=== PATIENT | female | born 1955 | race Two or more races ===

== ENCOUNTER 2017-10-13 22:08 | Inpatient (IN) | payer OTHER ==
[~2017-10-13] VITALS: Ht 160 cm; Wt 74.4 kg
[2017-10-13] MEDS ORDERED: SODIUM CHLORIDE 0.9% 1,000 ML IV ONE (22:39)
[2017-10-13] MEDS ORDERED: IBUPROFEN 400MG TABLET PO ONE (22:45)
[2017-10-14 00:12] LABS: BASOPHILS % 0.4 % (0.0-2.0); EOSINOPHILS % 0.1 % (0.0-5.0); HEMATOCRIT. 39.3 % (36.0-48.0); HEMOGLOBIN. 13.2 g/dL (12.0-16.0); LYMPHOCYTES % 11.2 % (20.0-50.0); MEAN CORPUSCULAR HEMOGLOBIN 32.6 pg (28.0-32.0); MEAN CORPUSCULAR VOLUME 96.8 fL (81.0-99.0); MEAN PLATELET VOLUME 8.8 fl (7.4-10.4); MONOCYTES % 6.2 % (2.0-8.0); NEUTROPHILS % 82.1 % (40.0-76.0); PLATELET 261 x1000/uL (130-400); RED BLOOD CELL COUNT 4.06 mill/uL (4.2-5.4); RED CELL DISTRIBUTION WIDTH 12.9 % (11.6-14.6)
[2017-10-14 00:20] LABS: CHLORIDE 101 mEq/L (98-107)
[2017-10-14 00:31] LABS: PARTIAL THROMBOPLASTIN TIME 24.5 sec (23.4-31.0)
[2017-10-14] MEDS ORDERED: ASPIRIN 325MG EC TABLET PO ONE (00:45)
[2017-10-14] MEDS ORDERED: MAGNESIUM/ALUMINUM HYDROXIDE/SIMETHICONE 30ML UDC PO PRN (01:15)
[2017-10-14] MEDS ORDERED: ACETAMINOPHEN 650MG SUPP PR PRN (01:15)
[2017-10-14] MEDS ORDERED: ONDANSETRON 4MG ODT PO PRN (01:15)
[2017-10-14] MEDS ORDERED: GUAIFENESIN 200MG/10ML SUGAR FREE UDC PO PRN (01:15)
[2017-10-14] MEDS ORDERED: DIPHENHYDRAMINE 50MG/ML VIAL IV PRN (01:15)
[2017-10-14] MEDS ORDERED: IPRATROPIUM/ALBUTEROL 0.5-3(2.5)MG/3ML NEB INH PRN (01:15)
[2017-10-14] MEDS ORDERED: HYDROCODONE/ACETAMINOPHEN 5/325MG TABLET PO PRN (01:15)
[2017-10-14] MEDS ORDERED: DOCUSATE SODIUM 100MG CAPSULE PO PRN (01:15)
[2017-10-14] MEDS ORDERED: HYDROCODONE/ACETAMINOPHEN 10/325MG TABLET PO PRN (01:15)
[2017-10-14] MEDS ORDERED: NA PHOS,M-B/NA PHOS,DI-BA ENEMA 118ML PR PRN (01:15)
[2017-10-14] MEDS ORDERED: CLONIDINE 0.1MG TABLET PO PRN (01:15)
[2017-10-14] MEDS ORDERED: ACETAMINOPHEN 650MG/20.3ML UDC GT PRN (01:15)
[2017-10-14] MEDS ORDERED: ACETAMINOPHEN 325MG TABLET PO PRN (01:15)
[2017-10-14] MEDS ORDERED: REPA2TAB8 MT (02:10)
[2017-10-14] MEDS ORDERED: LISI-604 MT (02:11)
[2017-10-14] MEDS ORDERED: SIMV20TA6 MT (02:13)
[2017-10-14] MEDS ORDERED: SITA100T11 PO (02:14)
[2017-10-14] MEDS ORDERED: METF10004 MT (02:15)
[2017-10-14] MEDS ORDERED: CANA300T PO (02:16)
[2017-10-14 04:00] VITALS: BP 105/56
[2017-10-14 04:44] VITALS: BP 105/56
[2017-10-14] MEDS: SODIUM CHLORIDE 0.45% 1,000 ML IV SCH ×2 (05:09→21:49)
[2017-10-14] MEDS: SODIUM CHLORIDE 0.9% INJ 3ML FLUSH IVF SCH ×3 (05:10→21:44)
[2017-10-14 07:57] LABS: CREATINE KINASE 55 IU/L (26-192)
[2017-10-14 08:03] LABS: CREATINE KINASE MB FRACTION < 1.0 ng/mL (0.5-3.6)
[2017-10-14 11:10] LABS: CLARITY URINE CLEAR (CLEAR); COLOR URINE YELLOW (YELLOW); KETONES URINE NEGATIVE (NEGATIVE); LEUKOCYTE ESTERASE URINE NEGATIVE (NEGATIVE); NITRITE URINE NEGATIVE (NEGATIVE); OCCULT BLOOD URINE NEGATIVE (NEGATIVE); PH URINE 5.5 (4.5-8.0); PROTEIN URINE NEGATIVE (NEGATIVE); SPECIFIC GRAVITY URINE 1.016 (1.005-1.030); UROBILINOGEN URINE 0.2 E.U./dL (0.2-1.0)
[2017-10-14 12:00] VITALS: BP 114/48
[2017-10-14 15:57] LABS: CREATINE KINASE 97 IU/L (26-192)
[2017-10-14 15:58] LABS: CREATINE KINASE MB FRACTION < 1.0 ng/mL (0.5-3.6)
[2017-10-14 16:00] VITALS: BP 110/61
[2017-10-14] MEDS ORDERED: DEXTROSE 50% WATER 50ML SYRINGE IV PRN (17:45)
[2017-10-14] MEDS ORDERED: MEDICATION NOT ON FORMULARY EA (Metformin Hcl 1 TAB) MT SCH (17:45)
[2017-10-14] MEDS ORDERED: MEDICATION NOT ON FORMULARY EA (Lisinopril 1 TAB) MT SCH (17:45)
[2017-10-14] MEDS ORDERED: REPAGLINIDE MT SCH (17:45)
[2017-10-14] MEDS: LISINOPRIL 20MG TABLET PO SCH (18:10)
[2017-10-14] MEDS: REPAGLINIDE 1MG TABLET PO SCH (18:10)
[2017-10-14] MEDS: METFORMIN HCL 500MG TABLET PO SCH (18:10)
[2017-10-14 19:28] LABS: BASOPHILS % 0.7 % (0.0-2.0); EOSINOPHILS % 1.3 % (0.0-5.0); HEMATOCRIT. 34.4 % (36.0-48.0); HEMOGLOBIN. 11.9 g/dL (12.0-16.0); LYMPHOCYTES % 27.4 % (20.0-50.0); MEAN CORPUSCULAR HEMOGLOBIN 33.6 pg (28.0-32.0); MEAN CORPUSCULAR VOLUME 97.2 fL (81.0-99.0); MEAN PLATELET VOLUME 8.6 fl (7.4-10.4); MONOCYTES % 9.9 % (2.0-8.0); NEUTROPHILS % 60.7 % (40.0-76.0); PLATELET 235 x1000/uL (130-400); RED BLOOD CELL COUNT 3.55 mill/uL (4.2-5.4); RED CELL DISTRIBUTION WIDTH 12.8 % (11.6-14.6)
[2017-10-14 19:55] LABS: CHLORIDE 106 mEq/L (98-107)
[2017-10-14 20:00] VITALS: BP 105/53
[2017-10-14] MEDS: BLOOD SUGAR DIAGNOSTIC STRIP TEST SCH (21:00)
[2017-10-14] MEDS ORDERED: MEDICATION NOT ON FORMULARY EA (Simvastatin 1 TAB) MT SCH (21:00)
[2017-10-14] MEDS ORDERED: ATORVASTATIN CALCIUM 10MG TABLET PO SCH (21:00)
[2017-10-14] MEDS: INSULIN LISPRO 100 UNITS/ML SUBCUT SCH (21:00)
[2017-10-15] VITALS: BP 109/53
[2017-10-15 04:00] VITALS: BP 147/70
[2017-10-15 06:19] LABS: BASOPHILS % 0.7 % (0.0-2.0); EOSINOPHILS % 2.1 % (0.0-5.0); HEMATOCRIT. 37.3 % (36.0-48.0); HEMOGLOBIN. 12.7 g/dL (12.0-16.0); MEAN CORPUSCULAR HEMOGLOBIN 33.2 pg (28.0-32.0); MEAN CORPUSCULAR VOLUME 97.9 fL (81.0-99.0); MEAN PLATELET VOLUME 8.8 fl (7.4-10.4); MONOCYTES % 10.7 % (2.0-8.0); NEUTROPHILS % 51.5 % (40.0-76.0); PLATELET 233 x1000/uL (130-400); RED BLOOD CELL COUNT 3.81 mill/uL (4.2-5.4); RED CELL DISTRIBUTION WIDTH 12.8 % (11.6-14.6)
[2017-10-15] MEDS: METFORMIN HCL 500MG TABLET PO SCH (06:37)
[2017-10-15] MEDS: SODIUM CHLORIDE 0.9% INJ 3ML FLUSH IVF SCH (06:37)
[2017-10-15] MEDS: INSULIN LISPRO 100 UNITS/ML SUBCUT SCH ×2 (06:37→12:15)
[2017-10-15] MEDS: REPAGLINIDE 1MG TABLET PO SCH ×2 (06:37→13:06)
[2017-10-15] MEDS: BLOOD SUGAR DIAGNOSTIC STRIP TEST SCH ×2 (06:37→11:45)
[2017-10-15 08:00] VITALS: BP 120/63
[2017-10-15 08:16] LABS: CHLORIDE 107 mEq/L (98-107)
[2017-10-15 08:24] LABS: HDL CHOLESTEROL 48 mg/dL (40-59); LDL CHOLESTEROL 72 mg/dL (5-100)
[2017-10-15] MEDS: LISINOPRIL 20MG TABLET PO SCH (09:09)
[2017-10-15 10:37] LABS: *AMPHETAMINES SCREEN URINE NEGATIVE (NEGATIVE); *BARBITURATES SCREEN URINE NEGATIVE (NEGATIVE); *BENZODIAZEPINES SCREEN URINE NEGATIVE (NEGATIVE); *COCAINE SCREEN URINE NEGATIVE (NEGATIVE); METHADONE URINE SCREEN NEGATIVE (NEGATIVE)
[2017-10-15 10:38] LABS: CANNABINOID URINE SCREEN NEGATIVE (NEGATIVE); PHENCYCLIDINE URINE SCREEN NEGATIVE (NEGATIVE)
[2017-10-15 10:50] LABS: OPIATES URINE SCREEN NEGATIVE (NEGATIVE)
[2017-10-15 12:00] VITALS: BP 122/88
[2017-10-15 13:53] VITALS: BP 120/63
== END 2017-10-15 14:20 | disposition home or self-care (01) | DRG 74 ==
LOC: ER 22:08 → 5WST 10-14 00:44 → EDBEDREQ 10-14 00:48 → EDBEDREQTM 10-14 00:48 → ENRESERV 10-14 02:51
PROVIDERS: ADMIT Family Medicine; ATTEND Family Medicine
DX: G90.8 Other disorders of autonomic nervous system (principal); E86.0 Dehydration; I10 Essential (primary) hypertension; E78.5 Hyperlipidemia, unspecified; R79.89 Other specified abnormal findings of blood chemistry; R01.1 Cardiac murmur, unspecified; E11.9 Type 2 diabetes mellitus without complications; S09.90XA Unspecified injury of head, initial encounter; W18.39XA Other fall on same level, initial encounter; Y93.89 Activity, other specified; Y92.090 Kitchen in other non-institutional residence as the place of occurrence of the external cause; Y99.8 Other external cause status
CPT/HCPCS: 36415; 70450; 71045; 80053; 80061; 80305; 81003; 82550; 82553; 82962; 83735; 83880; 84484; 85025; 85610; 85730; 87086; 93005; 93306; 93880; 99285; J7030